=== PATIENT | female | born 1975 | race Caucasian/White ===

== ENCOUNTER → 2016-09-30 | Outpatient (CLI) | payer OTHER ==
--- NOTE | 2016-10-01 08:42 | KCIC ---
Bilateral digital screening mammograms: Reason for examination: Routine screening. Comparison is made to previous studies dated back to 09/03/2011. The skin and nipples show no abnormalities. No abnormal axillary lymph nodes are seen. The breast parenchyma is extremely dense. (Breast density: Category D.) There appears to be some increased nodularity inferiorly in the right breast on oblique view and laterally in the left breast on cc view. These may represent cysts but recommend further evaluation with ultrasound. There are no suspicious calcifications or architectural distortion. Impression: Nodular densities suggested inferiorly in the right breast on oblique view and laterally in the left breast on CC view. Recommend further evaluation with ultrasound. Your patient's mammogram demonstrates that she has dense breast tissue (breast density category C or D), which could hide abnormalities, and if she has other risk factors for breast cancer that have been identified, she might benefit from supplemental screening tests that may be suggested by you as her ordering physician. Dense breast tissue, in and of itself, is a relatively common condition. Therefore, this information is not provided to cause undue concern, but rather to raise your awareness and to promote discussion with your patient regarding the presence of other risk factors, in addition to dense breast tissue. Your patient's mammography results will be sent to her. BI-RAD Category 0: Incomplete. Ultrasound follow-up is recommended. "Our facility is accredited by the [employer] Mammography Program." This patient's information has been entered into a reminder system for the patient to be notified with the results of her examination and a target date for the next mammogram. Electronically signed by: Alyson Galloway MD (10/01/2016 8:39 AM) [id number]
== END | disposition home or self-care (01) ==
LOC: KCIC MAMMO 13:48
PROVIDERS: ATTEND Family Medicine
DX: Z12.31 Encounter for screening mammogram for malignant neoplasm of breast (principal)
CPT/HCPCS: G0202; 77067

== ENCOUNTER → 2016-10-08 | Outpatient (CLI) | payer OTHER ==
--- NOTE | 2016-10-08 09:02 | RAD ---
Bilateral limited breast ultrasound 10/08/2016 Clinical history: Nodularity seen within both breasts on recent mammogram. Technique: A real-time ultrasound examination of the right breast from the 3 to 9:00 position and the retroareolar region was performed. A real-time ultrasound examination of left breast in the 12 to 6:00 position was performed. Multiple images were obtained. Findings: Comparison is made to the patient's mammogram dated 09/30/2016. Dense breast parenchyma is seen within the visualized portions of the right breast by ultrasound. Mildly dilated retroareolar ducts are noted. No solid or cystic mass is seen within the right breast. The density seen on the patient's mammogram is felt to represent dense breast parenchyma. Within the left breast two well-defined oval-shaped slightly complex structures are seen at the 12 o'clock position which measure 4 to 5 mm in size. A 5 mm oval shaped complex structure seen within the left breast at the 2:00 position. A 5 mm oval-shaped complex structures is seen within the left breast at the 3:00 position. These lesions appear to correspond to the areas of nodularity seen on the patient's mammogram. Their ultrasound appearance is consistent with probably benign lesions likely representing complex cysts or possibly intramammary lymph nodes. A repeat ultrasound of the left breast in 6 months is recommended to document their stability. I would recharacterize the patient's mammograms as BI-RADS category 3 probably benign findings with a recommendation for a repeat ultrasound of the left breast in 6 months. Impression: 1. Dense breast parenchyma seen within the right breast which appears to correspond to the patient's mammographic abnormality. No solid or cystic mass is seen. 2. Probably benign appearing lesions are seen within the left breast at the 12 through the 3:00 position as outlined above. A repeat ultrasound of the left breast in 6 months is recommended to document their stability. BI-RADS Category 3 probably benign findings.
== END | disposition home or self-care (01) ==
LOC: KCIC US 07:56
PROVIDERS: ATTEND Family Medicine
DX: R92.2 Inconclusive mammogram (principal)
CPT/HCPCS: 76641